=== PATIENT | female | born 1940 | race Caucasian/White ===

== ENCOUNTER 2017-04-07 10:17 | Emergency (ER) | payer MEDICARE, OTHER ==
[~2017-04-07] VITALS: Ht 165.1 cm; Wt 71.8 kg
[~2017-04-07 10:17] MED LIST: SIMV40TA3 PO; VENL75CA PO
[2017-04-07 13:10] VITALS: BP 136/77
== END 2017-04-07 13:11 | disposition home or self-care (01) ==
LOC: ED 12:40
DX: S20.212A Contusion of left front wall of thorax, initial encounter (principal); Z90.10 Acquired absence of unspecified breast and nipple; W18.09XA Striking against other object with subsequent fall, initial encounter; Y93.89 Activity, other specified; Y92.009 Unspecified place in unspecified non-institutional (private) residence as the place of occurrence of the external cause; Y99.9 Unspecified external cause status
CPT/HCPCS: 71250; 99284

== ENCOUNTER → 2018-01-07 | Outpatient (CLI) | payer MEDICARE, OTHER | END | disposition home or self-care (01) | LOC: CFH 12:56 | PROVIDERS: ATTEND Family Medicine | DX: Z12.31 Encounter for screening mammogram for malignant neoplasm of breast (principal); M51.34 Other intervertebral disc degeneration, thoracic region; M41.84 Other forms of scoliosis, thoracic region; Z90.12 Acquired absence of left breast and nipple | CPT/HCPCS: 71046; 72072; 77063; 77067 ==

== ENCOUNTER → 2018-02-08 | Outpatient (CLI) | payer MEDICARE, OTHER | END | disposition home or self-care (01) | LOC: CFH 13:35 | PROVIDERS: ATTEND Family Medicine | DX: M81.0 Age-related osteoporosis without current pathological fracture (principal); Z78.0 Asymptomatic menopausal state | CPT/HCPCS: 77080 ==

== ENCOUNTER → 2018-04-02 | Outpatient (CLI) | payer MEDICARE, OTHER | END | disposition home or self-care (01) | LOC: CFH 08:22 | PROVIDERS: ATTEND Family Medicine | DX: J98.4 Other disorders of lung (principal); Z85.3 Personal history of malignant neoplasm of breast | CPT/HCPCS: 71250 ==

== ENCOUNTER 2018-12-21 13:50 | Emergency (ER) | payer MEDICARE, OTHER ==
[~2018-12-21] VITALS: Ht 165.1 cm; Wt 72.8 kg
[2018-12-21 13:53] VITALS: BP 142/79
== END 2018-12-21 15:21 | disposition home or self-care (01) ==
LOC: ED 15:11
DX: S92.414A Nondisplaced fracture of proximal phalanx of right great toe, initial encounter for closed fracture (principal); F32.9 Major depressive disorder, single episode, unspecified; W01.0XXA Fall on same level from slipping, tripping and stumbling without subsequent striking against object, initial encounter; Y93.89 Activity, other specified; Y92.009 Unspecified place in unspecified non-institutional (private) residence as the place of occurrence of the external cause; Y99.8 Other external cause status
CPT/HCPCS: 99283

== ENCOUNTER → 2019-01-13 | Outpatient (CLI) | payer MEDICARE, OTHER ==
[~2019-01-13] MED LIST changes: +REGADENOSON 0.4 MG/5 ML SYRINGE ONE
== END | disposition home or self-care (01) ==
LOC: CFH 07:39
PROVIDERS: ATTEND Family Medicine
DX: R53.83 Other fatigue (principal); R07.9 Chest pain, unspecified
CPT/HCPCS: 78452; 93017; A9502; J2785

== ENCOUNTER → 2019-03-15 | Outpatient (CLI) | payer MEDICARE, OTHER ==
[~2019-03-15] MED LIST changes: -REGADENOSON 0.4 MG/5 ML SYRINGE ONE
== END | disposition home or self-care (01) ==
LOC: CVU 07:32
PROVIDERS: ATTEND Family Medicine
DX: I08.0 Rheumatic disorders of both mitral and aortic valves (principal); E78.5 Hyperlipidemia, unspecified; Z85.3 Personal history of malignant neoplasm of breast
CPT/HCPCS: 93225; 93226; 93306

== ENCOUNTER → 2019-06-06 | Outpatient (CLI) | payer MEDICARE, OTHER | END | disposition home or self-care (01) | LOC: CFH 13:44 | PROVIDERS: ATTEND Internal Medicine Cardiovascular Disease | DX: Z12.31 Encounter for screening mammogram for malignant neoplasm of breast (principal); I77.819 Aortic ectasia, unspecified site; E78.00 Pure hypercholesterolemia, unspecified | CPT/HCPCS: 75571; 77063; 77067 ==

== ENCOUNTER 2019-11-13 17:24 | Inpatient (IN) | payer MEDICARE, OTHER ==
[~2019-11-13] VITALS: Ht 165.1 cm; Wt 74.3 kg
[2019-11-13] MEDS ORDERED: SODIUM CHLORIDE 0.9% 1,000 ML IV ONE (18:24)
[2019-11-13] MEDS ORDERED: SODIUM CHLORIDE FLUSH 10ML SYR IVF ONE (18:30)
[2019-11-13] MEDS ORDERED: ONDANSETRON 2MG/ML, 2ML IVPush ONE (18:30)
[2019-11-13] MEDS ORDERED: HYDROmorphone 1 MG/ML, 1ML INJ ONE ×2 (18:32→22:09)
[2019-11-13] MEDS ORDERED: ONDANSETRON 2MG/ML, 2ML ONE (18:32)
[2019-11-13] MEDS: HYDROmorphone 2 MG/ML, 1ML IVPush PRN ×2 (18:37→22:14)
[2019-11-13 18:49] LABS: BASOPHILS # (AUTO) 0.03 x10^3/uL (0-0.1); BASOPHILS % (AUTO) 0 % (0-1); EOSINOPHILS # (AUTO) 0.15 x10^3/uL (0-0.4); EOSINOPHILS % (AUTO) 2 % (1-7); LYMPHOCYTES # (AUTO) 1.11 x10^3/uL (1-3.4); LYMPHOCYTES % (AUTO) 11 % (22-44); MD NO; MEAN CORPUSCULAR HEMOGLOBIN 35.2 pg (27.0-34.8); MEAN CORPUSCULAR HGB CONC 33.6 g/dL (32.4-35.8); MEAN CORPUSCULAR VOLUME 104.8 fL (80-100); MEAN PLATELET VOLUME 8.3 fL (7.4-10.4); MONOCYTES % (AUTO) 3 % (2-9); NEUTROPHILS # (AUTO) 8.56 x10^3/uL (1.8-6.8); NEUTROPHILS % (AUTO) 84 % (42-75); PLATELET COUNT 266 x10^3/uL (130-400); RED BLOOD COUNT 4.17 x10^6/uL (3.82-5.3); RED CELL DISTRIBUTION WIDTH 12.5 % (9.6-15.2)
[2019-11-13 18:56] LABS: ALBUMIN 4.5 g/dL (3.4-5.0); ANION GAP 8 mmol/L (5-15); CALCIUM 9.3 mg/dL (8.5-10.1); CHLORIDE 108 mmol/L (98-107)
[2019-11-13 19:00] LABS: ALANINE AMINOTRANSFERASE 32 U/L (12-78); ALKALINE PHOSPHATASE 134 U/L (45-117); BILIRUBIN,TOTAL 1.1 mg/dL (0.2-1.0); CREATININE 0.78 mg/dL (0.55-1.02); TOTAL PROTEIN 8.8 g/dL (6.4-8.2)
[2019-11-13] MEDS ORDERED: OMNIPAQUE 350 MG/ML, 100ML BOTTLE ONE (20:22)
[2019-11-13] MEDS ORDERED: SODIUM CHLORIDE FLUSH 10ML SYR IVF PRN (21:00)
[2019-11-13 22:20] LABS: MICROSCOPIC AUTO
[2019-11-13 22:21] LABS: CULTURE INDICATED? NO
[2019-11-13] MEDS ORDERED: ENALAPRILAT 1.25 MG/ML, 2ML IVPush PRN (22:30)
[2019-11-13] MEDS ORDERED: hydrALAzine 20 MG/ML, 1ML IVPush PRN (22:30)
[2019-11-13] MEDS ORDERED: HYDROmorphone 2 MG/ML, 1ML IVPush PRN (22:30)
[2019-11-13] MEDS ORDERED: PROMETHAZINE 25 MG/ML, 1ML IM PRN (22:30)
[2019-11-13] MEDS ORDERED: ONDANSETRON 2MG/ML, 2ML IVPush PRN (22:30)
[2019-11-13 23:31] VITALS: BP 133/86
[2019-11-14 00:16] VITALS: BP 150/93
[2019-11-14] MEDS: HEPARIN 5,000 UNITS/ML, 1ML SQ SCH ×2 (00:21→08:44)
[2019-11-14] MEDS: LACTATED RINGERS 1,000 ML IV SCH ×3 (00:21→20:19)
[2019-11-14 06:03] LABS: ANION GAP 6 mmol/L (5-15); CALCIUM 8.4 mg/dL (8.5-10.1); CHLORIDE 110 mmol/L (98-107)
[2019-11-14 07:05] VITALS: BP 116/76
[2019-11-14] MEDS: VENLAFAXINE 75 MG CAP ER PO SCH (08:55)
[2019-11-14] MEDS: KETOROLAC 30 MG/1 ML IV PRN ×2 (09:07→23:38)
[2019-11-14 13:33] VITALS: BP 119/76
[2019-11-14 15:40] VITALS: BP 99/67
[2019-11-14 19:31] VITALS: BP 129/77
[2019-11-15 03:32] VITALS: BP 122/76
[2019-11-15] MEDS: LACTATED RINGERS 1,000 ML IV SCH ×3 (03:33→20:00)
[2019-11-15 07:53] VITALS: BP 123/74
[2019-11-15] MEDS: KETOROLAC 30 MG/1 ML IV PRN (08:56)
[2019-11-15] MEDS: VENLAFAXINE 75 MG CAP ER PO SCH (08:57)
[2019-11-15 14:44] VITALS: BP 147/83
[2019-11-15 19:11] VITALS: BP 155/63
[2019-11-15] MEDS ORDERED: EPINEPHRINE 1 MG/ML, 1ML ONE (20:57)
[2019-11-15] MEDS ORDERED: BUPIVACAINE/PF 0.5% ONE (20:57)
[2019-11-15] MEDS ORDERED: hydrALAzine 20 MG/ML, 1ML IV PRN (21:00)
[2019-11-15] MEDS ORDERED: OXYcodone 5 MG/5 ML ORAL.SOL UDC PO PRN (21:00)
[2019-11-15] MEDS ORDERED: HALOPERIDOL 5 MG/ML IV PRN (21:00)
[2019-11-15] MEDS ORDERED: HYDROmorphone 2 MG/ML, 1ML IVPush PRN (21:00)
[2019-11-15] MEDS ORDERED: MEPERIDINE/PF 25MG/ML,1ML IVPush PRN (21:00)
[2019-11-15] MEDS ORDERED: PROMETHAZINE 25 MG/ML, 1ML IV PRN (21:00)
[2019-11-15] MEDS ORDERED: FENTANYL PF 100 MCG/2ML IV PRN (21:00)
[2019-11-15] MEDS ORDERED: LABETALOL 5MG/ML, 20ML IV PRN (21:00)
[2019-11-15] MEDS ORDERED: FENTANYL PF 250 MCG/5ML ONE (21:01)
[2019-11-15] MEDS ORDERED: MEPERIDINE/PF 25MG/ML,1ML ONE (22:24)
[2019-11-15] MEDS ORDERED: FENTANYL PF 100 MCG/2ML ONE (22:25)
[2019-11-15] MEDS ORDERED: OXYcodone 5 MG/5 ML ORAL.SOL UDC ONE (22:25)
[2019-11-16 03:39] VITALS: BP 131/83
[2019-11-16] MEDS: LACTATED RINGERS 1,000 ML IV SCH ×3 (04:00→20:00)
[2019-11-16] MEDS: VENLAFAXINE 75 MG CAP ER PO SCH (08:56)
[2019-11-16 08:58] VITALS: BP 138/86
[2019-11-16] MEDS ORDERED: ACETAMINOPHEN 325 MG TABLET PO PRN ×2 (11:00)
[2019-11-16 15:09] VITALS: BP 132/83
[2019-11-16 19:29] VITALS: BP 130/81
[2019-11-16] MEDS ORDERED: CEFAZOLIN 1,000 MG ONE (21:07)
[2019-11-16] MEDS ORDERED: DEXAMETHASONE 4 MG/ML, 1ML ONE (21:07)
[2019-11-16] MEDS ORDERED: PROPOFOL 10 MG/ML, 20ML ONE (21:07)
[2019-11-16] MEDS ORDERED: GLYCOPYRROLATE 0.2MG/1ML, 5ML ONE (21:07)
[2019-11-16] MEDS ORDERED: NEOSTIGMINE 1 MG/ML, 10ML ONE (21:07)
[2019-11-16] MEDS ORDERED: ROCURONIUM 10 MG/ML,10ML ONE (21:07)
[2019-11-16] MEDS ORDERED: SUCCINYLCHOLINE 20 MG/ML, 10ML ONE (21:07)
[2019-11-16] MEDS ORDERED: ONDANSETRON 2MG/ML, 2ML ONE (21:07)
[2019-11-17 00:22] VITALS: BP 126/76
[2019-11-17] MEDS: LACTATED RINGERS 1,000 ML IV SCH (04:00)
[2019-11-17] MEDS: VENLAFAXINE 75 MG CAP ER PO SCH (08:45)
[2019-11-17] MEDS ORDERED: PINK LADY ENEMA 490 ML BOTTLE PR ONE (09:00)
[2019-11-17 09:35] VITALS: BP 123/79
[2019-11-17] MEDS: GOLYTELY 4,000ML ORAL.SOL PO SCH ×3 (09:50→11:00)
[2019-11-17] MEDS ORDERED: FLU VACC QS2019-20 36MOS UP/PF 0.5 ML IM-VACC ONE (11:00)
[2019-11-17] MEDS ORDERED: SENN-177 PO (12:24)
== END 2019-11-17 12:53 | disposition home or self-care (01) | DRG 337 ==
LOC: ED 18:55 → EDIP 20:41 → 4NE 22:53 → DCLOUNGE 11-17 12:45
PROVIDERS: ADMIT Emergency Medicine; ATTEND Internal Medicine
PROC: 0DNU4ZZ Release Omentum, Percutaneous Endoscopic Approach (ICD-10-PCS; principal; 2019-11-15 17:15)
DX: K56.51 Intestinal adhesions [bands], with partial obstruction (principal); K76.89 Other specified diseases of liver; E78.5 Hyperlipidemia, unspecified; J45.909 Unspecified asthma, uncomplicated; F32.9 Major depressive disorder, single episode, unspecified; Z80.52 Family history of malignant neoplasm of bladder; Z83.3 Family history of diabetes mellitus; Z85.3 Personal history of malignant neoplasm of breast; Z90.710 Acquired absence of both cervix and uterus; Z90.10 Acquired absence of unspecified breast and nipple
CPT/HCPCS: 36415; 74018; 74177; 74250; 80048; 80053; 81001; 83690; 83735; 84100; 85025; 90686; 93005; 96374; 96375; 96376; G0378; J0171; J0690; J1100; J1170; J1644; J1885; J2405; J2704; J2710; J3010; Q9967; J0330; J2175; J7030; J7120

== ENCOUNTER 2020-05-02 10:28 | Outpatient (CLI) | payer MEDICARE, OTHER ==
[~2020-05-02 10:28] MED LIST changes: +SENN-177 PO; +SIMV40TA20 PO; -SIMV40TA3 PO
== END 2020-05-02 23:59 | disposition home or self-care (01) ==
LOC: CFH 10:28
PROVIDERS: ATTEND Nurse Practitioner Family
DX: K59.00 Constipation, unspecified (principal)
CPT/HCPCS: 74018

== ENCOUNTER 2021-04-07 13:50 | Emergency (ER) | payer MEDICARE, OTHER ==
[~2021-04-07] VITALS: Ht 165.1 cm; Wt 70.1 kg
--- NOTE | 2021-04-07 14:21 | NUR ---
PT BIB SELF VIA POV. PER PT SHE FELL LAST THURSDAY. PT WAS GOING TO BED, MISSED FIRST STEP AND FELL BACKWARDS AGAINST THE WALL. RIGHT SHOULDER AND BACK PAIN. BRUISING ON BILAT SHOULDERS. [facility], DR. MONTES AT BEDSIDE FOR EVALUATION, PT AWARE OF POC, WCTM.
--- NOTE | 2021-04-07 15:37 | NUR ---
DR MONTES SPOKE WITH DR LEI
[2021-04-07 17:02] VITALS: BP 149/81
== END 2021-04-07 17:04 | disposition home or self-care (01) ==
LOC: ED 16:55
DX: S32.010A Wedge compression fracture of first lumbar vertebra, initial encounter for closed fracture (principal); S09.90XA Unspecified injury of head, initial encounter; M25.511 Pain in right shoulder; M54.2 Cervicalgia; I10 Essential (primary) hypertension; W18.30XA Fall on same level, unspecified, initial encounter; Y93.89 Activity, other specified; Y92.009 Unspecified place in unspecified non-institutional (private) residence as the place of occurrence of the external cause; Y99.8 Other external cause status
CPT/HCPCS: 70450; 72125; 72131; 99285